=== PATIENT | male | born 1980 | race Caucasian/White ===

== ENCOUNTER → 2021-07-12 | Outpatient (CLI) | payer OTHER ==
[2021-07-12 07:37] LABS: BASO # 0.03 K/mm3 (0.02-0.10); EOS # 0.16 K/mm3 (0.04-0.40); EOS % 3.1 % (0.0-4.0); HEMATOCRIT 44.6 % (42.0-52.0); HEMOGLOBIN 15.8 g/dL (13.5-18.0); LYMPH# 1.68 K/mm3 (1.50-4.00); MEAN CELL VOLUME 91 fl (78-100); MEAN CORPUSCULAR HEMOGLOBIN 32 pg (27-31); MEAN CORPUSCULAR HGB CONC 35 g/dL (33-37); MONO # 0.52 K/mm3 (0.20-0.80); NEU # 2.82 K/mm3 (1.40-6.50); PLATELET COUNT 301 K/mm3 (130-400); RED BLOOD COUNT 4.92 M/mm3 (4.20-5.60); RED CELL DISTRIBUTION WIDTH 12.3 % (11.5-14.5); WHITE BLOOD COUNT 5.2 K/mm3 (4.8-10.8)
[2021-07-12 08:12] LABS: POTASSIUM 4.1 mmol/L (3.5-5.1)
[2021-07-12 08:13] LABS: ALBUMIN 4.6 g/dL (3.5-5.0)
[2021-07-12 08:14] LABS: CALCIUM 9.6 mg/dL (8.3-10.5)
[2021-07-12 08:15] LABS: TOTAL PROTEIN 7.5 g/dL (6.4-8.3)
[2021-07-12 08:17] LABS: TOTAL BILIRUBIN 1.3 mg/dL (0.2-1.2)
== END ==
LOC: LAB 07:10
PROVIDERS: Family Medicine
DX: Z00.00 Encounter for general adult medical examination without abnormal findings (principal); Z13.1 Encounter for screening for diabetes mellitus; Z13.220 Encounter for screening for lipoid disorders; Z13.0 Encounter for screening for diseases of the blood and blood-forming organs and certain disorders involving the immune mechanism; D17.1 Benign lipomatous neoplasm of skin and subcutaneous tissue of trunk; R73.01 Impaired fasting glucose

== ENCOUNTER → 2024-02-15 | Outpatient (REF) | payer OTHER | LOC: LAB 11:38 | DX: R05.9 Cough, unspecified (principal); Z20.822 Contact with and (suspected) exposure to COVID-19 ==